=== PATIENT | male | born 1950 | race Caucasian/White ===

== ENCOUNTER 2020-09-08 06:48 | Outpatient (CLI) | payer MEDICARE, OTHER ==
--- NOTE | 2020-09-08 17:55 | EKG ---
Test Reason : Blood Pressure : / mmHG Vent. Rate : 090 BPM Atrial Rate : 090 BPM P-R Int : 150 ms QRS Dur : 088 ms QT Int : 338 ms P-R-T Axes : 028 -33 037 degrees QTc Int : 413 ms Normal sinus rhythm Left axis deviation Cannot rule out Anterior infarct , age undetermined Abnormal ECG No previous ECGs available Confirmed by DR. Kiersten BRADFORD ([id number]) on 09/08/2020 5:55:30 PM Referred By: DRAA Confirmed By:DR. Kiersten BRADFORD
[2020-09-09 07:03] LABS: SARS-CoV-2 PCR by NAA Not Detected (NotDetected)
== END 2020-09-08 06:49 | disposition home or self-care (01) ==
LOC: LABBT 06:48
PROVIDERS: ATTEND Surgery
DX: Z01.818 Encounter for other preprocedural examination (principal); M48.062 Spinal stenosis, lumbar region with neurogenic claudication; M54.16 Radiculopathy, lumbar region; Z20.822 Contact with and (suspected) exposure to COVID-19
CPT/HCPCS: 93005; U0003; U0005; 87635; 93010

== ENCOUNTER 2020-09-11 06:05 | Day surgery (SDC) | payer MEDICARE, OTHER ==
[2020-09-09 13:31] VITALS: BMI 40.0
[2020-09-11] MEDS ORDERED: Thrombin 5000 UNITS/5 ML VIAL ONE (06:37)
[2020-09-11] MEDS ORDERED: Fentanyl 250 MCG/5 ML VIAL ONE (07:11)
[2020-09-11] MEDS ORDERED: SUGAMMADEX SODIUM 500 MG/5 ML VIAL ONE (08:43)
[2020-09-11] MEDS ORDERED: Albumin 5% 500 ML ONE (09:05)
[2020-09-11] MEDS ORDERED: Promethazine HCl 25 MG/ML VIAL IM PRN (09:09)
[2020-09-11] MEDS ORDERED: HYDROmorphone 2 MG/ML VIAL SLOW IVP PRN (09:09)
[2020-09-11] MEDS ORDERED: PACU-Morphine 4MG/ML VIAL SLOW IVP PRN (09:09)
[2020-09-11] MEDS ORDERED: Morphine Sulfate 2 MG/ML SYRINGE SLOW IVP PRN (09:09)
[2020-09-11] MEDS ORDERED: Ondansetron HCl/PF 4 MG/2 ML Vial IVP PRN (09:09)
[2020-09-11] MEDS ORDERED: Promethazine HCl 25 MG/ML VIAL SLOW IVP PRN (09:09)
[2020-09-11] MEDS ORDERED: Morphine 2 MG/ML VIAL SLOW IVP PRN (10:13)
[2020-09-11] MEDS ORDERED: Mag-Al 1200 mg/1200 mg/30 ML UDCUP PO PRN (10:13)
[2020-09-11] MEDS ORDERED: Acetaminophen/Codeine 30-300mg Tablet PO PRN (10:13)
[2020-09-11] MEDS ORDERED: traMADol HCl 50 MG TAB PO PRN (10:13)
[2020-09-11] MEDS ORDERED: Acetaminophen 325 MG TAB PO PRN (10:13)
[2020-09-11] MEDS ORDERED: Milk Of Magnesia 30 ML UDCUP PO PRN (10:13)
[2020-09-11] MEDS ORDERED: Ondansetron PF 4 MG/2 ML Vial IVP PRN (10:13)
[2020-09-11] MEDS ORDERED: tiZANidine HCl 4 MG TAB PO PRN (10:13)
[2020-09-11] MEDS ORDERED: Bisacodyl 10 MG SUPP PR PRN (10:13)
[2020-09-11] MEDS ORDERED: ePHEDrine 50 MG/ML VIAL ONE (10:16)
[2020-09-11] MEDS ORDERED: Ondansetron PF 4 MG/2 ML Vial ONE (10:16)
[2020-09-11] MEDS ORDERED: Lidocaine 1% PF 5 ML VIAL ONE (10:16)
[2020-09-11] MEDS ORDERED: Metoclopramide HCl 10 MG/2 ML VIAL ONE (10:16)
[2020-09-11] MEDS ORDERED: Rocuronium Bromide 10 MG/ML (10ML VIAL) ONE (10:16)
[2020-09-11] MEDS ORDERED: PHENYLEPHRINE-NS 100 MCG/ML 10 ML SYRINGE ONE (10:16)
[2020-09-11] MEDS ORDERED: PROPOFOL 200 MG/20 ML VIAL ONE (10:16)
[2020-09-11] MEDS ORDERED: Dexamethasone 20 MG/5 ML VIAL ONE (10:16)
[2020-09-11] MEDS ORDERED: Fentanyl 100 MCG/2 ML VIAL ONE ×3 (10:28→11:50)
--- NOTE | 2020-09-11 14:05 | OP ---
DATE OF PROCEDURE: 09/11/2020 LOCATION: OR-12. SHIP CARPENTER: Valery Flynn PA-C PREPROCEDURE DIAGNOSES: Multilevel lumbar stenosis, neurogenic claudication. POSTPROCEDURE DIAGNOSES: Multilevel lumbar stenosis, neurogenic claudication. PROCEDURES PERFORMED: L2-L3, L3-L4, L4-L5, and L5-S1 laminectomies, partial facetectomies, foraminotomies. DESCRIPTION OF PROCEDURE: After informed consent was obtained from the patient, the patient was brought to the OR. Proper patient, pause, and identification were carried out. He was placed under excellent general endotracheal anesthesia and positioned prone on the OR table. All appropriate points were padded. We identified the L2, L3, L4, L5, and S1 dorsal spines and lamina. A linear ese was made over this region. This area was sterilely cleansed, prepared, and draped. Proper patient, pause, and identification were carried out. The wound was then opened with a combination of sharp, monopolar, and blunt dissection. The L2, L3, L4, L5, and S1 dorsal spines and lamina were all exposed. Localization film confirmed area of interest. We then performed L2, L3, L4, L5, and S1 laminectomies, partial facetectomies, and foraminotomies with excellent decompression of the common dural tube and nerve roots. There was no spinal fluid leak. Hemostasis was maximized throughout. The wound was then closed in anatomic layers following sprinkling of vancomycin powder. The patient emerged from anesthesia. Job ID: [id number]
[2020-09-11] MEDS: Sodium Chloride 0.9% 1,000 ML IV SCH (14:24)
[2020-09-11] MEDS: CEFAZOLIN 2 GM in Premix Bag 1 BAG IVPB SCH ×2 (14:44→20:51)
[2020-09-11] MEDS: HYDROcodone/Acetaminophen 7.5/325 mg Tablet PO PRN ×2 (14:45→20:51)
[2020-09-11] MEDS ORDERED: metFORMIN 500 MG TAB PO SCH (21:00)
[2020-09-11] MEDS ORDERED: REPAGLINIDE 0.5 MG PO SCH (21:00)
[2020-09-12] MEDS: HYDROcodone/Acetaminophen 7.5/325 mg Tablet PO PRN ×2 (03:04→09:43)
[2020-09-12] MEDS: Sodium Chloride 0.9% 1,000 ML IV SCH (03:08)
[2020-09-12 07:46] VITALS: TEMP 97.8
--- NOTE | 2020-09-12 08:32 | PRG ---
DATE OF SERVICE: 09/12/2020 Mr. Klein is postoperative day #1 after undergoing L2-S1 laminectomies, partial facetectomies, and foraminotomies. Postoperatively, he did require a prolonged oxygenation. In the recovery unit, however, he was able to be transitioned to the surgical floor. Our team consulted Medicine for evaluation of possible undiagnosed obstructive sleep apnea and need for CPAP device. Today, the patient was resting comfortably in bed and denied any complaints. He reports that his low back pain is well controlled on pain medications. He denies any lower extremity pain. He states that he has been able to ambulate about the halls without difficulty. He states that he feels safe for discharge home today. I would like for physical therapy to see him first to help with transitions such as log-rolling. Also, I would like Case Management to assist with setting up home health therapies. Afterwards, he can be discharged home with outpatient followup in the upcoming weeks. He demonstrates 5/5 strength throughout the bilateral lower extremity myotomes. Job ID: [id number]
[2020-09-12] MEDS ORDERED: Lisinopril 20 MG TAB PO SCH (09:00)
[2020-09-12] MEDS ORDERED: Hydrochlorothiazide 25 MG TAB PO SCH (09:00)
[2020-09-12] MEDS ORDERED: Pioglitazone HCl 15 MG TAB PO SCH (09:00)
[2020-09-12] MEDS ORDERED: Non-Formulary Item 1 EACH (Lisinopril [Lisinopril] 40 MG Tablet) PO SCH (09:00)
[2020-09-12] MEDS ORDERED: Non-Formulary Item 1 EACH (Metformin Hcl [Metformin Hcl] 1,000 MG Tablet) PO SCH (09:00)
[2020-09-12] MEDS ORDERED: Amlodipine 5 MG TAB PO SCH (09:00)
[2020-09-12] MEDS ORDERED: Non-Formulary Item 1 EACH (Pioglitazone Hcl [Pioglitazone Hcl] 30 MG Tablet) PO SCH (09:00)
[2020-09-12] MEDS ORDERED: Non-Formulary Item 1 EACH (Omeprazole [Omeprazole] 40 MG Capsule.Dr) PO SCH (09:00)
[2020-09-12] MEDS ORDERED: Non-Formulary Item 1 EACH (Amlodipine Besylate [Norvasc] 2.5 MG Tablet) PO SCH (09:00)
[2020-09-12] MEDS ORDERED: Loratadine 10 MG TAB PO SCH (09:00)
[2020-09-12] MEDS ORDERED: metFORMIN 500 MG TAB PO SCH (09:00)
[2020-09-12 12:11] VITALS: BP 153/80
== END 2020-09-12 13:50 | disposition home or self-care (01) ==
LOC: SDC 06:05 → EDBD 10:30 → SURG A 13:57 → SDC 09-12 13:50
PROVIDERS: ATTEND Surgery
PROC: 01NB0ZZ Release Lumbar Nerve, Open Approach (ICD-10-PCS; principal; 2020-09-11)
PROC: 00NY0ZZ Release Lumbar Spinal Cord, Open Approach (ICD-10-PCS; 2020-09-11)
DX: M48.062 Spinal stenosis, lumbar region with neurogenic claudication (principal); M54.16 Radiculopathy, lumbar region; I10 Essential (primary) hypertension; Z79.84 Long term (current) use of oral hypoglycemic drugs; Z79.899 Other long term (current) drug therapy
CPT/HCPCS: 63047; 63048 ×2; 76000; 97110; 97116; 97139 ×2; 97535; P9045; J0690; J1100; J2405; J2704; J2765; J3010; J3370; J3490

== ENCOUNTER 2022-11-03 14:15 | Inpatient (IN) | payer MEDICARE, OTHER ==
[2022-11-04] MEDS ORDERED: Protamine Sulfate 50 MG/5 ML VIAL ONE (06:33)
[2022-11-04] MEDS ORDERED: Bupivacaine HCl 0.5%/Epinephrine 1:200,000/PF 30 ml Vial ONE (06:33)
[2022-11-04] MEDS ORDERED: Heparin 5,000 UNITS/ML VIAL ONE (06:33)
[2022-11-04] MEDS ORDERED: niCARdipine 25 MG/10 ML SDV ONE (06:58)
[2022-11-04] MEDS ORDERED: Fentanyl 250 MCG/5 ML VIAL ONE (06:58)
[2022-11-04] MEDS ORDERED: Nitroglycerin 50 MG/250 ML BOT 250 ML ONE (06:59)
[2022-11-04] MEDS ORDERED: SUGAMMADEX SODIUM 200 MG/2 ML VIAL ONE (07:09)
[2022-11-04] MEDS ORDERED: Phenylephrine 10 MG/ML VIAL ONE (07:09)
[2022-11-04] MEDS ORDERED: Lidocaine 1% MPF 2 ML VIAL ONE (07:16)
[2022-11-04] MEDS ORDERED: Sodium Chloride 0.9% 100 ML ONE (07:19)
[2022-11-04] MEDS ORDERED: CEFAZOLIN 2 GM VIAL ONE (07:19)
[2022-11-04] MEDS ORDERED: ePHEDrine Sulfate 50 MG/10 ML VIAL ONE (07:32)
[2022-11-04] MEDS ORDERED: Rocuronium Bromide 10 MG/ML (10ML VIAL) ONE (07:32)
[2022-11-04] MEDS ORDERED: Lidocaine 1% PF 5 ML VIAL ONE (07:32)
[2022-11-04] MEDS ORDERED: Labetalol HCl 100 MG/20 ML VIAL ONE (07:32)
[2022-11-04] MEDS ORDERED: Dexamethasone 20 MG/5 ML VIAL ONE (07:32)
[2022-11-04] MEDS ORDERED: PROPOFOL 200 MG/20 ML VIAL ONE (07:32)
[2022-11-04] MEDS ORDERED: Ondansetron PF 4 MG/2 ML Vial ONE (07:32)
[2022-11-04] MEDS ORDERED: Aspirin Chewable 81 MG TAB PO SCH (09:00)
[2022-11-04] MEDS ORDERED: Pioglitazone HCl 15 MG TAB PO SCH (09:00)
[2022-11-04] MEDS ORDERED: Rosuvastatin 10 MG TAB PO SCH (09:00)
[2022-11-04] MEDS ORDERED: Phenylephrine 40 MG/NS 250 ML 40 MG in Premix Bag 1 BAG IVPB PRN (09:03)
[2022-11-04] MEDS ORDERED: Ipratropium/Albuterol 3 ML NEB NEB PRN (09:03)
[2022-11-04] MEDS ORDERED: niCARdipine 25 MG in Sodium Chloride 0.9% 250 ML 250 ML IVPB PRN (09:03)
[2022-11-04] MEDS ORDERED: Acetaminophen 325 MG TAB PO PRN (09:03)
[2022-11-04] MEDS ORDERED: Ondansetron PF 4 MG/2 ML Vial IVP PRN (09:03)
[2022-11-04] MEDS ORDERED: traMADol HCl 50 MG TAB PO PRN (09:03)
[2022-11-04] MEDS ORDERED: Lisinopril 20 MG TAB PO SCH ×2 (09:03→21:00)
[2022-11-04] MEDS ORDERED: Insulin Regular 300 UNITS/3 ML VIAL SC PRN (09:03)
[2022-11-04] MEDS ORDERED: Sodium Chloride 0.9% 1,000 ML IV SCH (09:03)
[2022-11-04] MEDS ORDERED: FENTANYL 50 MCG/ML 1 ML VIAL SLOW IVP PRN (09:18)
[2022-11-04 11:52] VITALS: BMI 37.0
[2022-11-04] MEDS: CEFAZOLIN 2 GM in Sodium Chloride 0.9% 100 ML IVPB SCH (15:59)
[2022-11-04] MEDS ORDERED: Fentanyl CADD 100 ML ONE (19:47)
[2022-11-05] MEDS: CEFAZOLIN 2 GM in Sodium Chloride 0.9% 100 ML IVPB SCH (00:14)
[2022-11-05 05:03] VITALS: TEMP 98.1
== END 2022-11-05 07:50 | disposition home or self-care (01) | DRG 39 ==
LOC: SURG A 11-04 05:52 → CCU 11-04 11:20 → EDSTATUS 11-04 14:15
PROVIDERS: ADMIT Thoracic Surgery (Cardiothoracic Vascular Surgery); ATTEND Thoracic Surgery (Cardiothoracic Vascular Surgery)
PROC: 03CH0ZZ Extirpation of Matter from Right Common Carotid Artery, Open Approach (ICD-10-PCS; principal; 2022-11-04)
PROC: 03UH0KZ Supplement Right Common Carotid Artery with Nonautologous Tissue Substitute, Open Approach (ICD-10-PCS; 2022-11-04)
DX: I65.21 Occlusion and stenosis of right carotid artery (principal); I10 Essential (primary) hypertension; E78.5 Hyperlipidemia, unspecified; E66.9 Obesity, unspecified; K21.9 Gastro-esophageal reflux disease without esophagitis; E11.9 Type 2 diabetes mellitus without complications; Z79.84 Long term (current) use of oral hypoglycemic drugs; Z79.82 Long term (current) use of aspirin; Z79.899 Other long term (current) drug therapy; Z68.37 Body mass index [BMI] 37.0-37.9, adult
CPT/HCPCS: 36416; C1768; C1776; J1100; J1644; J2370; J2405; J2704; J2720; J3010; J3490; J7050

== ENCOUNTER 2022-11-03 15:04 | Outpatient (CLI) | payer MEDICARE, OTHER ==
[2022-11-03 15:43] LABS: Hemoglobin 11.4 g/dL (13.5-17.5); Mean Corpuscular HGB CONC 32.1 g/dL (32.0-36.0); Mean Corpuscular Hemoglobin 32.1 pg (27.0-33.0); Mean Platelet Volume 9.7 fl (7.4-10.4); Platelet Count 208 10x3/uL (150-450); RBC Distribution Width 13.9 % (11.5-14.5); Red Blood Cell (RBC) Count 3.55 10x6/uL (4.32-5.72); White Blood Cell (WBC) Count 7.3 10x3/uL (3.5-10.5)
[2022-11-03 16:01] LABS: Anion Gap 16 mmol/L (10-20); BUN (Urea Nitrogen) 58 mg/dL (8.4-25.7); Calc. Creatinine Clearance 0 mL/min (70-130); Calcium 9.6 mg/dL (7.8-10.44); Carbon Dioxide 20 mmol/L (23-31); Chloride 110 mmol/L (98-107); Estimated GFR 34; Glucose 110 mg/dL (83-110); Sodium 141 mmol/L (136-145)
== END 2022-11-03 15:05 | disposition home or self-care (01) ==
LOC: LABBT 15:04
PROVIDERS: ATTEND Thoracic Surgery (Cardiothoracic Vascular Surgery)
DX: Z01.818 Encounter for other preprocedural examination (principal); I65.29 Occlusion and stenosis of unspecified carotid artery
CPT/HCPCS: 80048; 85027; 93005; 93010